=== PATIENT | female | born 1945 | race Caucasian/White ===

== ENCOUNTER 2019-11-05 23:44 | Emergency (ER) | payer MEDICARE ==
[~2019-11-05] VITALS: Ht 162.6 cm; Wt 75.0 kg
[2019-11-06 00:40] VITALS: BP 162/71
== END 2019-11-06 00:42 | disposition home or self-care (01) ==
LOC: ER 23:45
DX: T50.991A Poisoning by other drugs, medicaments and biological substances, accidental (unintentional), initial encounter (principal); F41.9 Anxiety disorder, unspecified; I10 Essential (primary) hypertension; Y92.89 Other specified places as the place of occurrence of the external cause
CPT/HCPCS: 99281